=== PATIENT | male | born 1995 | race African-American/Black ===

== ENCOUNTER 2023-04-21 15:29 | Inpatient (IN) | payer MEDICAID ==
[~2023-04-21] VITALS: Ht 182.9 cm; Wt 70.3 kg
[2023-04-21 15:55] VITALS: O2SAT 100
[2023-04-21] MEDS ORDERED: IBUPROFEN 600 MG TABLET ONE (16:05)
[2023-04-21] MEDS: IBUPROFEN 600 MG TABLET PO ONE (16:09)
[2023-04-21 16:13] LABS: APPEARANCE,URINE CLEAR (CLEAR); BILIRUBIN,URINE NEGATIVE (NEGATIVE); BLOOD, URINE NEGATIVE Ery/uL (NEGATIVE); COLOR,URINE YELLOW (YELLOW); KETONES,URINE TRACE mg/dL (NEGATIVE); LEUKOCYTE ESTERASE ,URINE NEGATIVE (NEGATIVE); NITRITE, URINE POSITIVE (NEGATIVE); PROTEIN,URINE NEGATIVE (NEGATIVE); UGLUCOSE NEGATIVE (NEGATIVE)
[2023-04-21] MEDS ORDERED: MORPHINE SULFATE INJ 2 MG/ML DISP.SYRIN ONE (16:35)
[2023-04-21] MEDS: MORPHINE SULFATE INJ 2 MG/ML DISP.SYRIN IV ONE (16:39)
[2023-04-21 16:54] LABS: RBC,URINE 0-2 /HPF (0-2)
[2023-04-21 16:55] LABS: ADD URINE CULTURE YES; BACTERIA,URINE 1+ /HPF (None Seen); SQUAMOUS EPITHELIAL CELL,UR Few /HPF (None Seen); WBC,URINE 0-2 /HPF (0-3)
[2023-04-21] MEDS ORDERED: MULT-594 PO (16:55)
[2023-04-21] MEDS ORDERED: ACET-73 PO (16:55)
[2023-04-21 17:12] LABS: BASOPHILS % (AUTO) 0.4 % (0.0-2.0); EOSINOPHILS % (AUTO) 0.2 % (0.0-6.0); HEMATOCRIT 42 % (39-51); HEMOGLOBIN 13.6 g/dL (13.5-17.5); LYMPHOCYTES # (AUTO) 2.3 K/uL (0.8-4.8); MEAN CORPUSCULAR HEMOGLOBIN 28 PG (26.0-33.0); MEAN CORPUSCULAR HGB CONC 33 g/dl (31.0-36.0); MEAN CORPUSCULAR VOLUME 87 fL (80-96); MONOCYTES # (AUTO) 0.7 K/uL (0.1-1.30); MONOCYTES % (AUTO) 8.7 % (2.0-12.0); NEUTROPHILS # (AUTO) 5.2 K/uL (1.8-8.9); NEUTROPHILS % (AUTO) 62.7 % (43.0-81.0); PLATELET COUNT (AUTO) 243 K/uL (150-450); RED BLOOD CELL COUNT(AUTO) 4.79 MIL/uL (4.5-6.0); RED CELL DISTRIBUTION WIDTH 13.1 % (11.5-15.0); WHITE BLOOD COUNT (AUTO) 8.3 K/uL (4.3-11.0)
[2023-04-21 17:23] LABS: CALCIUM, SERUM 9.4 mg/dL (8.5-10.1); CREATININE 0.9 mg/dL (0.6-1.3)
[2023-04-21 17:29] LABS: ALBUMIN 4.8 g/dL (3.4-5.0); BILIRUBIN,DIRECT 0.3 mg/dL (0.0-0.2); BILIRUBIN,TOTAL 1.7 mg/dL (0.2-1.0); TOTAL PROTEIN, SERUM 8.4 g/dL (6.4-8.2)
[2023-04-21 17:32] LABS: POTASSIUM 2.8 mmol/L (3.5-5.1)
[2023-04-21] MEDS ORDERED: LIDOCAINE 1% INJ 50 ML MDV IJ ONE (17:33)
[2023-04-21] MEDS ORDERED: ANESTHESIA TRAY IN PYXIS 1 EA TRAY MC ONE (17:33)
[2023-04-21] MEDS ORDERED: BUPIVACAINE 0.5 % PF 150 MG/30 ML VIAL ONE (17:33)
[2023-04-21] MEDS ORDERED: LIDOCAINE 1%-EPI 1:100,000 20 ML VIAL ONE (17:34)
[2023-04-21 17:53] LABS: INR 1.1 (0.91-1.10); PARTIAL THROMBOPLASTIN TIME 31.1 SEC (24.3-34.3); PROTHROMBIN TIME 11.6 SECS (9.2-11.1)
[2023-04-21] MEDS ORDERED: KETAMINE HCL (500MG/10ML) 50 MG/ML VIAL ONE (18:20)
[2023-04-21] MEDS ORDERED: FENTANYL PF 100MCG/2ML AMPUL ONE (18:20)
[2023-04-21] MEDS ORDERED: MIDAZOLAM HCL 2 MG/2ML VIAL ONE (18:21)
[2023-04-21] MEDS ORDERED: Z GUARD REMEDY 4 OZ OINT TP PRN (18:30)
[2023-04-21] MEDS ORDERED: POTASSIUM CL. PREMIX PERIPHER. 50 ML IV SCH (18:30)
[2023-04-21] MEDS ORDERED: ONDANSETRON HCL/PF 4 MG/2 ML VIAL IVP PRN (18:30)
[2023-04-21] MEDS: POTASSIUM CL. PREMIX PERIPHER. 50 ML IV SCH (21:11)
[2023-04-21] MEDS: PANTOPRAZOLE 40 MG VIAL IV SCH (21:19)
[2023-04-21] MEDS: IV D5/ 0.9% NACL 1,000 ML IV PRN (21:20)
[2023-04-21] MEDS: HYDROMORPHONE 1 MG/1 ML DISP.SYRIN IV PRN (22:02)
[2023-04-22] MEDS: IBUPROFEN 200 MG TABLET PO PRN (00:05)
[2023-04-22 07:04] LABS: HEMATOCRIT 30 % (39-51); HEMOGLOBIN 10.1 g/dL (13.5-17.5); MEAN CORPUSCULAR HEMOGLOBIN 29 PG (26.0-33.0); MEAN CORPUSCULAR HGB CONC 34 g/dl (31.0-36.0); MEAN CORPUSCULAR VOLUME 86 fL (80-96); MONOCYTES % (AUTO) 9.2 % (2.0-12.0); NEUTROPHILS # (AUTO) 8.8 K/uL (1.8-8.9); NEUTROPHILS % (AUTO) 81.8 % (43.0-81.0); PLATELET COUNT (AUTO) 196 K/uL (150-450); RED BLOOD CELL COUNT(AUTO) 3.49 MIL/uL (4.5-6.0); RED CELL DISTRIBUTION WIDTH 12.6 % (11.5-15.0); WHITE BLOOD COUNT (AUTO) 10.7 K/uL (4.3-11.0)
[2023-04-22 07:58] LABS: CALCIUM, SERUM 8.5 mg/dL (8.5-10.1); CREATININE 0.8 mg/dL (0.6-1.3); MAGNESIUM 1.9 mg/dL (1.8-2.4); PHOSPHORUS 3.9 mg/dL (2.5-4.9); POTASSIUM 4.1 mmol/L (3.5-5.1)
[2023-04-22 08:28] VITALS: BP 133/78; TEMP 98.2; O2SAT 98
[2023-04-22] MEDS: PANTOPRAZOLE 40 MG TABLET.DR PO SCH (09:38)
[2023-04-22] MEDS: CEFTRIAXONE 1 G in IV D5W 50 ML IV SCH (11:54)
[2023-04-22] MEDS ORDERED: HYDR-3972 PO (13:41)
[2023-04-22] MEDS ORDERED: IBUP-1955 PO (13:41)
[2023-04-22 16:35] VITALS: BP_SYST 121; BP_SYST 147; BP_DIAS 81; TEMP 99.2; O2SAT 97
[2023-04-22 22:08] LABS: CHLAMYDIA TRACHOMATIS NAA Negative (Negative); NEISSERIA GONORRHOEAE NAA Negative (Negative)
== END 2023-04-22 18:26 | disposition home or self-care (01) | DRG 483 ==
LOC: ER 15:35 → MED 18:37
PROVIDERS: ADMIT Nurse Practitioner Acute Care; ATTEND Nurse Practitioner Acute Care
PROC: 0VTB0ZZ Resection of Left Testis, Open Approach (ICD-10-PCS; principal; 2023-04-21)
PROC: 0VS90ZZ Reposition Right Testis, Open Approach (ICD-10-PCS; 2023-04-21)
DX: N44.00 Torsion of testis, unspecified (principal); E87.6 Hypokalemia; N50.1 Vascular disorders of male genital organs; F12.90 Cannabis use, unspecified, uncomplicated
CPT/HCPCS: 36415; 76870-TC; 80048-TC; 80076-TC; 81001; 83735-TC; 84100-TC; 85025-TC; 85730-TC; 86850-TC; 87086-TC; 87491; 87591; A4223; A6403; C9113; G0378; J0696; J1170; J2250; J2270; J3010; J3480; J3490; J7042; J7050; J7060

== ENCOUNTER 2023-04-29 09:59 | Emergency (ER) | payer MEDICAID ==
[~2023-04-29] VITALS: Ht 182.9 cm; Wt 68.0 kg
[~2023-04-29 09:59] MED LIST: ACET-73 PO; HYDR-3972 PO; IBUP-1955 PO; MULT-594 PO
[2023-04-29] MEDS ORDERED: HYDR-4209 PO (11:42)
[2023-04-29] MEDS ORDERED: CLIN300C12 PO (11:42)
[2023-04-29] MEDS ORDERED: OXYC-128 PO (11:53)
[2023-04-29 13:04] VITALS: BP 119/76; TEMP 97.8; O2SAT 98
== END 2023-04-29 12:50 | disposition home or self-care (01) ==
LOC: ER 09:59
DX: G89.18 Other acute postprocedural pain (principal); N50.82 Scrotal pain
CPT/HCPCS: 99284; 76870; A6403